=== PATIENT | female | born 1995 | race Caucasian/White ===

== ENCOUNTER 2018-09-10 09:03 | Emergency (ER) | payer SELFPAY ==
[~2018-09-10] VITALS: Ht 160 cm; Wt 74.1 kg
[2018-09-10 09:18] VITALS: BP 138/66; TEMP 98.3
[2018-09-10 10:30] VITALS: PULSE 84
== END 2018-09-10 10:30 | disposition home or self-care (01) ==
LOC: COL.ER 09:03
DX: S93.402A Sprain of unspecified ligament of left ankle, initial encounter (principal); W22.8XXA Striking against or struck by other objects, initial encounter; Y92.009 Unspecified place in unspecified non-institutional (private) residence as the place of occurrence of the external cause